=== PATIENT | female | born 1955 | race Two or more races ===

== ENCOUNTER 2019-10-27 05:48 | Day surgery (SDC) | payer OTHER ==
[2019-10-27] VITALS (10 sets, daily range): BP systolic 106–125; BP diastolic 60–89
[~2019-10-27] VITALS: Ht 160 cm; Wt 104.3 kg
[~2019-10-27 05:48] MED LIST: ALBUTEROL SULF8.5 G1 INH; HYDROCHLOROTH12.5 MG ORAL; Jardiance PO; TRAZODONE HCL150 MG ORAL
[2019-10-27] MEDS: Phenylephrine 10% Opth Soln 5ml LEFT EYE SCH ×4 (06:12→06:34)
[2019-10-27] MEDS: Diclofenac Sod 0.1% Op Soln LEFT EYE SCH ×4 (06:12→06:34)
[2019-10-27] MEDS: Cyclopentolate 1% Opth Sol 2ml LEFT EYE SCH ×4 (06:12→06:34)
[2019-10-27] MEDS: Akten 3.5% 1ml Btl LEFT EYE SCH ×4 (06:13→06:34)
[2019-10-27] MEDS: Ciprofloxacin Opth Soln 5ml LEFT EYE SCH ×4 (06:15→06:34)
[2019-10-27] MEDS ORDERED: Midazolam 2mg/2ml Inj ONE (07:00)
[2019-10-27] MEDS ORDERED: fentaNYL 100 mcg/2 mL IV ONE (07:00)
[2019-10-27] MEDS ORDERED: Lidocaine 1% MPF 10mg/ml 5ml ONE (07:10)
[2019-10-27] MEDS ORDERED: EPINEPHrine 1mg/1ml Amp ONE (07:10)
[2019-10-27] MEDS ORDERED: Lidocaine 4% Amp 5ml ONE (07:10)
[2019-10-27] MEDS ORDERED: Carbachol 0.01% Op Soln 1.5ml vial ONE (07:11)
[2019-10-27] MEDS ORDERED: BSS 500ml btl ONE (07:11)
[2019-10-27] MEDS ORDERED: prednisoLONE acetate 1% Opth Susp 1ml ONE (07:11)
[2019-10-27] MEDS ORDERED: Polysporin Opth Oint 3.5gm ONE (07:11)
[2019-10-27] MEDS ORDERED: Povidone-Iodine 5% opth solution ONE (07:11)
[2019-10-27] MEDS ORDERED: Lidocaine 2% 20mg/ml/Epi 0.005mg/ml 20ml vial ONE (07:11)
[2019-10-27] MEDS ORDERED: BSS 15ml BTL ONE (07:12)
[2019-10-27] MEDS ORDERED: Tetracaine 0.5% Opth 4ml Soln ONE (07:12)
[2019-10-27] MEDS ORDERED: Sodium Hyaluronate 10 mg/ml 0.85ml ONE (07:12)
--- NOTE | 2019-10-27 07:16 | Pre-Procedure Note/Attestation ---
Pre-Procedure Note/Attestation Complete Prior to Procedure Planned Procedure: left Procedure Narrative: Cataract with intraocular lens implantation Indications for Procedure Pre-Operative Diagnosis: Cataract Attestation I attest that I discussed the nature of the procedure; its benefits; risks and complications; and alternatives (and the risks and benefits of such alternatives ), prior to the procedure, with the patient (or the patient's legal pharmacy services representative). I attest that, if there was a reasonable possibility of needing a blood transfusion, the patient (or the patient's legal pharmacy services representative) was given the [facility] standardized written summary, pursuant to the Marlon Ayde Blood Safety Act ([place] Health and Safety Code # 1645, as amended). I attest that I re-evaluated the patient just prior to the surgery and that there has been no change in the patient's H&P, except as documented below: Benton Gaffney MD Oct 27, 2019 07:16
--- NOTE | 2019-10-27 07:30 | Anethesia Preoperative Eval ---
Anesthesia Pre-op PMH/ROS General Date of Evaluation: Oct 27, 2019 Time of Evaluation: 07:27 Anesthesiologist: Liv ASA Score: ASA 3 Mallampati Score Class I : Soft palate, uvula, fauces, pillars visible Class II: Soft palate, uvula, fauces visible Class III: Soft palate, base of uvula visible Class IV: Only hard plate visible Mallampati Classification: Class II Surgeon: Yeimy Diagnosis: L eye cataract Surgical Procedure: Cataract extraction Anesthesia History: none Family History: no anesthesia problems Allergies: Coded Allergies: ZOLPIDEM (Verified Adverse Reaction, Intermediate, "sleep walking", ) Medications: see eMAR Patient NPO?: Yes Past Medical History Cardiovascular: Reports: HTN - stable Pulmonary: Reports: asthma - mild; Denies: COPD, SHUN, other Gastrointestinal/Genitourinary: Reports: GERD - mild; Denies: CRI, ESRD, other Neurologic/Psychiatric: Denies: dementia, CVA, depression/anxiety, TIA, other Endocrine: Reports: DM - on pills stable; Denies: hypothyroidism, steroids, other HEENT: Reports: cataract (L), cataract (R); Denies: glaucoma, [place] (L), [place] (R), other Hematology/Immune: Reports: anemia - mild; Denies: DVT, bleeding disorder, other Musculoskeletal/Integumentary: Denies: OA, RA, DJD, DDD, edema, other Other: obesity PMH Narrative: as above PSxH Narrative: Breast Sx Anesthesia Pre-op Phys. Exam Physician Exam Last Vital Signs Date Time Temp Pulse Resp B/P (MAP) Pulse Ox O2 Delivery O2 Flow Rate FiO2 10/27/19 06:25 Room Air 10/27/19 06:24 97.0 52 18 125/77 100 Constitutional: NAD Neurologic: CN 2-12 intact Cardiovascular: RRR, no M/R/G Respiratory: CTA Gastrointestinal: other - obesity Airway Exam Mallampati Score: Class II MO: full Neck: flexible ROM: full Teeth: intact Dentures: no upper, no lower Anesthesia Pre-op A/P Labs see chart Studies Pre-op Studies: EKG - NSR Risk Assessment & Plan Assessment: ASA 3 Plan: MAC Status Change Before Surgery: No Pre-Antibiotics Drug: none Ulisses Peck MD Oct 27, 2019 07:30
[2019-10-27] MEDS ORDERED: LR 1000ml 1,000 ML IVLG SCH (07:47)
[2019-10-27] MEDS ORDERED: NS Irrig 1000ml ONE (08:00)
[2019-10-27] MEDS ORDERED: Sterile Water Irrig 1000ml IRRIG ONE (08:00)
[2019-10-27] MEDS ORDERED: LR 1000ml ONE ×2 (08:00→17:00)
[2019-10-27] MEDS ORDERED: fentaNYL 100 mcg/2 mL IV PRN (08:00)
--- NOTE | 2019-10-27 08:21 | Operative Note - PDOC ---
Operative Note Operative Note Date of Operation/Procedure: Oct 27, 2019 Chief Complaint: Poor vision left eye Pre-op Diagnosis: Cataract Procedure: Cataract extraction with implantation of intraocular lens Post-op Diagnosis: Same Post-op Diagnosis: same as pre-op Surgeon: Benton Gaffney Cath Laboratory Technician: None Additional Surgeons: Yandel Anesthesiologist: Liv Anesthesia: MAC Specimen: none Complications: none Condition: stable Estimated Blood Loss: none Drains: none Implant(s) used?: Yes Indications for Procedure Poor vision left eye Description of Procedure See Operative Report Benton Gaffney MD Oct 27, 2019 08:21
--- NOTE | 2019-10-27 08:23 | Immediate Post-Op Evaluation ---
Immediate Post-Op Evalulation Immediate Post-Op Evalulation Procedure: L eye cataract extraction with IOL Date of Evaluation: Oct 27, 2019 Time of Evaluation: 08:22 IV Fluids: 400 Blood Products: none Estimated Blood Loss: none Urinary Output: none Blood Pressure Systolic: 109 Blood Pressure Diastolic: 67 Pulse Rate: 64 Respiratory Rate: 18 O2 Sat by Pulse Oximetry: 99 Temperature (Fahrenheit): 98.4 Pain Score (1-10): 1 Nausea: No Vomiting: No Complications none Patient Status: awake, patent, none Hydration Status: adequate Ulisses Peck MD Oct 27, 2019 08:23
--- NOTE | 2019-10-27 09:38 | 48 Hour Post Anesthesia Eval ---
Post Anesthesia Evaluation Procedure: L eye cataract extraction with IOL Date of Evaluation: Oct 27, 2019 Time of Evaluation: 09:37 Blood Pressure Systolic: 118 0: 74 Pulse Rate: 68 Respiratory Rate: 20 Temperature (Fahrenheit): 97.6 O2 Sat by Pulse Oximetry: 98 Airway: patent Nausea: No Vomiting: No Pain Intensity: 1 Hydration Status: adequate Cardiopulmonary Status: stable Mental Status/LOC: patient returned to baseline Follow-up Care/Observations: n/a Post-Anesthesia Complications: none Follow-up care needed: ready to discharge Ulisses Peck MD Oct 27, 2019 09:38
[2019-10-27] MEDS ORDERED: Neostigmine 1mg/ml 10ml Inj ONE (17:00)
--- NOTE | 2019-10-29 10:30 | Operative Note - Dictated ---
DATE OF OPERATION: 10/27/2019 SURGEON: Benton Gaffney MD. DISPATCHER SERVICE OR WORK: None. ANESTHESIA: MAC. ANESTHESIOLOGIST: Ulisses Peck MD. 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 PRINCIPAL PROCEDURE: Phacoemulsification with primary implantation of posterior chamber intraocular lens, left eye. DESCRIPTION OF PROCEDURE: The patient was evaluated in my office complaining of gradually decreasing vision, worse in both eyes. She was found to have visually significant cataract, worse in the left eye than the right eye. After discussing the risks, benefits, and alternatives, informed consent was obtained to proceed with cataract extraction initially in the left eye. The patient was therefore brought to the [facility] where the left pupil was dilated and an intravenous line was started. She was brought into the operating room where MAC anesthesia was obtained with topical drops supplemented with intravenous sedation. The left eye was then prepped and draped in usual fashion for intraocular surgery. A clear corneal temporal incision was made in the anterior chamber filled with Shugarcaine and viscoelastic. A continuous tear capsulotomy was accomplished. Hydrodissection was utilized to facilitate phacoemulsification. A two-handed phacoemulsification technique was used to fracture the lens nucleus into quadrants and the segments removed in sequence. The irrigation/aspiration handpiece was then used to remove residual lens cortex and welsh the posterior capsule. Viscoelastic was introduced. The anterior capsule was polished. An intraocular lens from [employer], model ZCB00, with a power of 19.5 diopters, was folded into the lens insertion cartridge, injected into the posterior chamber of the eye and positioned within the capsular bag. The viscoelastic was removed. The wound was adjusted and then made watertight without sutures. The intraocular pressure was adjusted to normal. One drop of 10% Betadine, one drop of prednisolone acetate, and one drop of Vigamox was placed on the eye. The eye was covered with an eye shield. This completed the procedure. All sponge and needle counts were correct. The patient was taken to the [facility] in a good condition having tolerated the procedure well. Benton Gaffney M.D. DR: TEA JOB#: [id number] CC: Dillan Krueger M.D.
== END 2019-10-27 09:45 | disposition home or self-care (01) ==
LOC: SUR 05:48 → EDBD 07:30 → SUR 09:45
DX: H25.812 Combined forms of age-related cataract, left eye (principal); I10 Essential (primary) hypertension; K21.9 Gastro-esophageal reflux disease without esophagitis; E11.9 Type 2 diabetes mellitus without complications; D64.9 Anemia, unspecified; E66.9 Obesity, unspecified; Z88.8 Allergy status to other drugs, medicaments and biological substances
CPT/HCPCS: 66984; 94003; J0171; J1100; J2250; J2704; J3010; J3370; J7120; V2632; 94150; J2710